=== PATIENT | female | born 1970 | race African-American/Black ===

== ENCOUNTER → 2019-06-02 | Outpatient (CLI) | payer BC ==
[~2019-06-02] MED LIST: LIDOCAINE 2%/EPI 1:100,000 20 ML VIAL. IJ ONE
--- NOTE | 2019-06-03 18:16 | RAD ---
Examination: STEREOTACTIC BREAST BIOPSY RT, DIGITAL DIAGNOSTIC RT History: Abnormal mammogram. Right breast calcifications. Comparison/Correlation: 05/11/2019 screen mammographic exam, 05/15/2019 right unilateral diagnostic mammogram Findings: Risks and benefits of stereotactic biopsy of the right breast were discussed with the patient. Informed consent was obtained. Preliminary imaging was performed to localize the calcifications of interest. Medial approach was utilized. Cleansing with Betadine was performed at the site of anticipated needle placement. 8 cc 1% lidocaine was utilized. Scalpel incision was made. A gauge core biopsy needle was introduced into the right breast. Subsequent images confirm the placement of the needle. Needle was then fired and again imaging was performed to confirm placement. 12 samples were obtained. Additional 5 cc 2% lidocaine with epinephrine was administered. Obtained biopsies. Biopsy clip marker was then placed. CC and MLO images of the right breast were obtained after clip marker placement. Biopsy clip marker is present at the inner lower left breast. Calcifications of interest are mostly no longer seen. No hematoma. Impression: Successful biopsy of the right lower inner breast calcifications. Sample sent to the lab. The patient tolerated the procedure well without immediate complication.
--- NOTE | 2019-06-04 16:06 | PATHOLOGY ---
[facility] Accession Number: [id number] . 01 Material submitted: . breast - RIGHT BREAST TISSUE. Modifiers: right . 01 Clinical history: . Right lower central breast calcs . 02 Diagnosis: Breast tissue, right lower central breast stereotactic needle biopsies: - Ductal carcinoma in situ, high-grade, micropapillary and solid type, with associated calcifications. - Apocrine metaplasia, focal. (JPM:mo; 06/03/2019) MBR 06/03/2019 1728 Local . 02 Comment: Sections of the right breast stereotactic needle biopsy reveal multiple foci of high-grade ductal carcinoma in situ of micropapillary and solid type. The largest of these foci measures 6-7 mm in greatest dimension. DCIS shows associated psammomatous type calcifications. There is no evidence of invasive carcinoma. Breast prognostic studies will be obtained on block A2, the results of which will be reported separately. The case is also examined by Dr. Sellers, who concurs with the diagnosis. (JPM:mo; 06/03/2019) . 02 Electronically signed: . Gordon Minaya MD, Pathologist NPI- [id number] . 01 Gross description: . Received in formalin labeled "Radha Garcia, right breast tissue" is a 2.9 x 2.6 x 0.5 cm aggregate of cylindrical yellow-banks soft tissue cores. The specimen is submitted entirely in cassettes A1-A5. The specimen is removed from the patient at 1438 and placed in formalin at 1455 on June 02, 2019. The specimen is removed from formalin at 2340 on June 02, 2019. (SK; 06/02/2019) SYC/SYC 06/02/2019 1820 Local . 02 Pathologist provided ICD-10: D05.11, N60.81 . 02 CPT . 783676 Specimen Comment: A courtesy copy of this report has been sent to [phone] Specimen Comment: Report sent to Performed at: [address] [id number] MD Tyler Adorno MD Phone: [phone] Performed at: [address] [id number] MD Gordon Minaya MD Phone: [phone]
== END | disposition home or self-care (01) ==
LOC: EDUNIT# 05-18 15:21 → MAMMO 12:54
PROVIDERS: ATTEND Family Medicine
DX: R92.8 Other abnormal and inconclusive findings on diagnostic imaging of breast (principal); D05.11 Intraductal carcinoma in situ of right breast; R92.1 Mammographic calcification found on diagnostic imaging of breast
CPT/HCPCS: 19081; 77065; 88305; 88361; C1713; 19085; 77022